=== PATIENT | female | born 1960 | race Caucasian/White ===

== ENCOUNTER → 2016-08-16 | Outpatient (CLI) | payer BC ==
[~2016-08-16] MED LIST: DOXY100T PO
[2016-08-16 15:54] LABS: THYROID STIMULATING HORMONE 3.05 uIu/ml (0.300-4.500)
== END | disposition home or self-care (01) ==
LOC: C.LABBC 09:44
PROVIDERS: ATTEND Physician Assistant
DX: E03.9 Hypothyroidism, unspecified (principal)

== ENCOUNTER → 2016-09-14 | Outpatient (CLI) | payer BC ==
--- NOTE | 2016-09-14 09:32 | DIAGNOSTIC IMAGING REPORT ---
ULTRASOUND OF THE THYROID GLAND CLINICAL HISTORY: Multinodular goiter. COMPARISON STUDY: Thyroid ultrasound from [facility] dated 10/10/2015. TECHNIQUE: Real-time, grayscale, and color flow sonography of the thyroid gland is performed utilizing a high-frequency linear transducer. Images are reviewed in the transverse and longitudinal planes. FINDINGS: Right lobe: The right lobe of the thyroid gland is normal in size and markedly heterogeneous in echotexture, measuring 4.3 x 1.7 x 1.8 cm. A hypoechoic solid nodule in the lower pole measures 1.0 x 0.8 x 0.9 cm (previously measured 1.1 x 0.7 x 0.8 cm). A calcification containing nodule in the upper pole measures 1.0 x 0.6 x 0.8 cm (likely present previously, and possibly not discretely measured). Additional smaller nodules are suggested. The right lobe appears hyperemic on color imaging. Left lobe: The left lobe of the thyroid gland is normal in size and markedly heterogeneous in echotexture, measuring 5.3 x 1.6 x 1.7 cm. A hypoechoic solid nodule in the upper pole measures 1.3 x 0.7 x 0.8 (previously measured 1.0 x 0.5 x 0.7 cm). Additional smaller hypoechoic nodules are suggested. Hyperemia is noted in the left lobe on color imaging. Isthmus: The thyroid isthmus is markedly heterogeneous and measures 0.5 cm in AP diameter. IMPRESSION: 1. The thyroid gland is markedly heterogeneous in echotexture and appears hyperemic on color imaging. The appearance suggests thyroiditis. 2. Numerous bilateral thyroid nodules, likely similar in appearance to 10/10/2015 examination. Electronically signed by: Allen Johnson M.D. 09/14/2016 9:31 AM Dictated Date/Time: 09/14/2016 9:27 AM
[2016-09-14 11:10] LABS: THYROID STIMULATING HORMONE 3.42 uIu/ml (0.300-4.500)
== END | disposition home or self-care (01) ==
LOC: C.ULTRBC 08:42
PROVIDERS: ATTEND Physician Assistant
DX: E04.2 Nontoxic multinodular goiter (principal); E06.3 Autoimmune thyroiditis

== ENCOUNTER → 2016-12-20 | Outpatient (CLI) | payer BC ==
[2016-12-20 11:42] LABS: THYROID STIMULATING HORMONE 1.94 uIu/ml (0.300-4.500)
== END | disposition home or self-care (01) ==
LOC: C.LABBC 09:04
PROVIDERS: ATTEND Physician Assistant
DX: E03.9 Hypothyroidism, unspecified (principal)

== ENCOUNTER → 2017-04-18 | Outpatient (CLI) | payer BC ==
[2017-04-18 14:48] LABS: THYROID STIMULATING HORMONE 1.89 uIu/ml (0.300-4.500)
== END | disposition home or self-care (01) ==
LOC: C.LABBC 10:07
PROVIDERS: ATTEND Physician Assistant
DX: E03.9 Hypothyroidism, unspecified (principal)

== ENCOUNTER → 2017-08-23 | Outpatient (CLI) | payer BC ==
--- NOTE | 2017-08-23 09:27 | DIAGNOSTIC IMAGING REPORT ---
SOFT TISS HEAD/NECK-THYROID CLINICAL HISTORY: 56 years-old Female presenting with E03.9 Subclinical [id number] Multinodular [id number]. TECHNIQUE: Real-time grayscale and color Doppler ultrasound imaging of the thyroid and base of the neck was performed. COMPARISON: 09/14/2016. FINDINGS: Right lobe: Heterogeneous echogenicity and echotexture. The right lobe of the thyroid measures 4.9 x 1.6 x 1.7 cm. No parenchymal hyperemia. Index nodule(s) enumerated below: 1. Heterogeneously hyperechoic well-defined 1.0 x 1.0 x 0.7 cm nodule (low suspicion). Previously this nodule measured 1.0 x 0.6 x 0.8 cm. 2. Hypoechoic well-defined 1.2 x 0.9 x 0.7 cm nodule (intermediate suspicion). Previously this nodule measured 1.0 x 0.8 x 0.9 cm. Left lobe: Heterogeneous echogenicity and echotexture. The left lobe of the thyroid measures 4.4 x 1.6 x 1.5 cm. No parenchymal hyperemia. Index nodule(s) enumerated below: 1. Hypoechoic well-defined 1.0 x 0.7 x 0.5 cm nodule (intermediate suspicion). This was not previously measured as an index nodule but is not grossly changed in size. 2. Hypoechoic well-defined 0.7 x 0.7 x 0.5 cm nodule (intermediate suspicion). Previously this nodule measured 1.3 x 0.7 x 0.8 cm. Isthmus: The isthmus measures 5 mm in thickness. No parenchymal hyperemia. Index nodule(s) enumerated below: 1. Hypoechoic well-defined 0.9 x 0.5 x 0.7 cm nodule (intermediate suspicion) . This was not previously measured as an index nodule. IMPRESSION: Multinodular thyroid. An intermediate suspicion nodule in each lobe of the thyroid (right lobe nodule 2; left lobe nodule 1) meets [place] [employer] criteria for fine-needle aspiration if this has not previously been performed. Alternatively, as these 2 nodules have not grown in size since the prior exam nearly one year ago, continued ultrasound follow-up could be considered. Electronically signed by: Issa Castro M.D. 08/23/2017 9:26 AM Dictated Date/Time: 08/23/2017 9:18 AM
== END | disposition home or self-care (01) ==
LOC: C.ULTRBC 08:25
PROVIDERS: ATTEND Physician Assistant
DX: E04.2 Nontoxic multinodular goiter (principal); E03.9 Hypothyroidism, unspecified

== ENCOUNTER → 2017-09-22 | Outpatient (CLI) | payer BC | END | disposition home or self-care (01) | LOC: C.PAPS 11:21 | PROVIDERS: ATTEND Obstetrics & Gynecology | DX: Z01.419 Encounter for gynecological examination (general) (routine) without abnormal findings (principal) ==